=== PATIENT | female | born 1945 | race Caucasian/White ===

== ENCOUNTER → 2018-11-03 | Outpatient (CLI) | payer OTHER | LOC: M.RAD 09:51 | DX: Z12.31 Encounter for screening mammogram for malignant neoplasm of breast (principal) ==

== ENCOUNTER → 2020-06-19 | Outpatient (CLI) | payer OTHER ==
--- NOTE | 2020-06-19 16:11 | 2DMMODE ---
[place] [address] 2 D/M-MODE ECHOCARDIOGRAM Name: JAJA SRIVASTAVA Room: [facility]#: [id number] Admission: 06/19/20 Attend Phys: Dilia Sigala DO Discharge: Date of : 45 Date of Service: 06/19/20 1611 Report #: [id number] THIS REPORT FOR: cc: Dilia Sigala Maggie M. DO Blick, David R. MD [facility] ~ APPROVED REPORT Study performed: 06/19/2020 10:30:58 EXAM: Comprehensive 2D, Doppler, and color-flow Echocardiogram Patient Location: Out-Patient BSA: 2.02 HR: 81 bpm BP: 125/68 mmHg Other Information Study Quality: Good Indications Murmur 2D Dimensions IVSd: 11.67 (7-11mm) LVOT Diam: 20.53 (18-24mm) LVDd: 43.93 mm PWd: 10.36 (7-11mm) Ascending Ao: 32.64 (22-36mm) LVDs: 33.79 (25-40mm) Aortic Root: 32.52 mm Volumes Left Atrial Volume (Systole) LA ESV Index: 18.50 mL/m2 Aortic Valve AoV Peak Prakash.: 1.76 m/s AO Peak Gr.: 12.43 mmHg LVOT Max P.56 mmHg AO Mean Gr.: 6.84 mmHg LVOT Mean P.04 mmHg LVOT Max V: 1.28 m/s AO V2 VTI: 34.72 cm LVOT Mean V: 0.80 m/s ANA (VTI): 2.11 cm2 LVOT V1 VTI: 22.09 cm Mitral Valve E/A Ratio: 0.70 [place] [address] 2 D/M-MODE ECHOCARDIOGRAM Name: JAJA SRIVASTAVA Room: [facility]#: [id number] Admission: 06/19/20 Attend Phys: Dilia Sigala DO Discharge: Date of : 45 Date of Service: 06/19/20 1611 Report #: [id number] MV Decel. Time: 300.43 ms MV E Max Prakash.: 0.64 m/s MV PHT: 87.13 ms MVA (PHT): 2.53 cm2 TDI E/Lateral E': 6.40 E/Medial E': 5.82 Medial E' Prakash.: 0.11 m/s Lateral E' Prakash.: 0.10 m/s Pulmonary Valve PV Peak Prakash.: 1.20 m/s PV Peak Gr.: 5.80 mmHg Left Ventricle The left ventricle is normal size. There is normal LV segmental wall motion. There is normal left ventricular wall thickness. Left ventricular systolic function is normal. The left ventricular ejection fraction is within the normal range. LVEF is 55-60%. Grade I - abnormal relaxation pattern. Right Ventricle The right ventricle is normal size. The right ventricular systolic function is normal. Atria The left atrium size is normal. The right atrium size is normal. Aortic Valve Aortic valve is mildly calcified. No aortic regurgitation is present. There is mild aortic valvular stenosis. Mitral Valve Mild mitral annular calcification. Mild mitral annular calcification. There is no mitral valve regurgitation noted. No evidence of mitral valve stenosis. Tricuspid Valve The tricuspid valve is normal in structure. There is no tricuspid valve regurgitation noted. Pulmonic Valve The pulmonary valve is normal in structure. There is no pulmonic valvular regurgitation[place] [address] 2 D/M-MODE ECHOCARDIOGRAM Name: JAJA SRIVASTAVA Room: [facility]#: [id number] Admission: 06/19/20 Attend Phys: Dilia Sigala DO Discharge: Date of : 45 Date of Service: 06/19/20 1611 Report #: [id number] The aortic root is normal in size. IVC is normal in size and collapses >50% with inspiration. Pericardium There is no pericardial effusion. <Conclusion> LVEF is 55-60%. There is mild aortic valvular stenosis. <ELECTRONICALLY SIGNED> By: Nicola Diaz MD, FACC 06/19/201610 10 10 Nicola Diaz MD, FACC /INF
== END ==
LOC: M.CRD 10:31
PROVIDERS: ATTEND Family Medicine
DX: I08.0 Rheumatic disorders of both mitral and aortic valves (principal)

== ENCOUNTER → 2021-03-13 | Outpatient (CLI) | payer OTHER | LOC: M.ULTRA 11:13 | PROVIDERS: ATTEND Family Medicine | DX: M79.604 Pain in right leg (principal); M79.605 Pain in left leg ==

== ENCOUNTER → 2021-03-15 | Outpatient (CLI) | payer OTHER | LOC: M.ULTRA 12:46 | PROVIDERS: ATTEND Family Medicine | DX: M79.604 Pain in right leg (principal); M79.605 Pain in left leg; M79.89 Other specified soft tissue disorders ==